=== PATIENT | female | born 1965 | race American Indian/Alaskan Native ===

== ENCOUNTER 2018-03-13 17:55 | Inpatient (IN) | payer OTHER ==
[2018-03-13] MEDS ORDERED: ceFAZolin IV 1 gm in Dextrose 1 GM/50 ML BAG IVPB STA (18:07)
--- NOTE | 2018-03-13 18:16 | C.PDOC ---
History Of Present Illness 52 year old female with a history of HTN presents to the emergency department with complaints of a two-day history of an abscess to her left breast. Patient states that she went to Dr. Terrazas's office, who referred her to Dr. Holley. Dr. Holley instructed her to come to the ED, where he evaluated her. Patient states that her abscess began as the size of a nickel but "blew up" all of a sudden. Time Seen by Provider: 03/13/18 18:07 Chief Complaint (Nursing): Abnormal Skin Integrity History Per: Patient History/Exam Limitations: no limitations Onset/Duration Of Symptoms: Days (2) Current Symptoms Are (Timing): Still Present Location Of Injury: Left: Chest Quality Of Symptoms: Painful Past Medical History Reviewed: Historical Data, Nursing Documentation, Vital Signs Vital Signs: Last Vital Signs Temp 99 F 03/13/18 17:58 Pulse 93 H 03/13/18 17:58 Resp 18 03/13/18 17:58 BP 149/84 03/13/18 17:58 Pulse Ox 96 03/13/18 17:58 - Medical History PMH: Bronchitis, HTN Surgical History: Cholecystectomy Family History: States: No Known Family Hx - Social History Hx Alcohol Use: Yes Hx Substance Use: No - Immunization History Hx Tetanus Toxoid Vaccination: No Hx Influenza Vaccination: No Hx Pneumococcal Vaccination: No Review Of Systems Except As Marked, All Systems Reviewed And Found Negative. Constitutional: Negative for: Fever, Chills Skin: Positive for: Other (abscess) Physical Exam - Physical Exam Appears: Well, Non-toxic, No Acute Distress Skin: Warm, Dry Head: Atraumatic, Normacephalic Eye(s): bilateral: Normal Inspection, PERRL, EOMI, Other (conjunctiva clear) Neck: Normal, Supple Chest: Symmetrical, Tenderness (to palpation at the left breast), Other (area of induration to the posterior aspect of the left breast, not draining, small amount of fluctuance.) Cardiovascular: Rhythm Regular, No Murmur Respiratory: Normal Breath Sounds, No Rales, No Rhonchi, No Wheezing Neurological/Psych: Oriented x3, Normal Speech, Normal Cognition ED Course And Treatment - Laboratory Results Result Diagrams: 03/17/18 08:10 03/17/18 08:10 O2 Sat by Pulse Oximetry: 96 (RA) Pulse Ox Interpretation: Normal Medical Decision Making Medical Decision Making: Plan: BMP CBC PTT Prothrombin Time Ancef 1gm IV Blood Culture Dr. Holley evaluated the patient in the ED. He states he wants the patient admitted under Dr. Terrazas's service, and states he wants the patient to receive a gram of Ancef after midnight. 18:17 Dr. Terrazas accepted the patient under his service. Disposition - Disposition Disposition: HOSPITALIZED Disposition Time: 18:17 Condition: GOOD - Clinical Impression Clinical Impression: Abscess of breast - Scribe Statement The provider has reviewed the documentation as recorded by the Scribe (Nate Khadar) Provider Attestation: All medical record entries made by the Scribe were at my direction and personally dictated by me. I have reviewed the chart and agree that the record accurately reflects my personal performance of the history, physical exam, medical decision making, and the department course for this patient. I have also personally directed, reviewed, and agree with the discharge instructions and disposition.
[2018-03-13] MEDS ORDERED: ceFAZolin IV 1 gm in Dextrose 1 GM/50 ML BAG IVPB ONE (18:37)
[2018-03-13 18:42] LABS: BASO # 0.1 K/uL (0.0-0.2); BASO % 0.6 % (0.0-2.0); EOS # 0.4 K/uL (0.0-0.7); EOS % 4.6 % (0.0-4.0); HEMOGLOBIN 10.7 g/dL (11.0-16.0); LYMPH # 2.2 K/uL (1.0-4.3); LYMPH % 23.9 % (20.0-40.0); MEAN CELL VOLUME 71.9 fL (81.0-99.0); MEAN CORPUSCULAR HEMOGLOBIN 22.6 pg (27.0-31.0); MEAN CORPUSCULAR HGB CONC 31.4 g/dL (33.0-37.0); MEAN PLATELET VOLUME 7.5 fL (7.2-11.7); MONO # 0.5 K/uL (0.0-0.8); MONO % 5.2 % (0.0-10.0); NEUT # 6.2 K/uL (1.8-7.0); NEUT % 65.7 % (50.0-75.0); RBC 4.73 Mil/uL (3.80-5.20); RED CELL DISTRIBUTION WIDTH 19.8 % (11.5-14.5); WHITE BLOOD COUNT 9.4 K/uL (4.8-10.8)
[2018-03-13 18:51] LABS: INR 1.1; PROTHROMBIN TIME 11.9 SECONDS (9.7-12.2)
[2018-03-13 18:54] LABS: BLOOD UREA NITROGEN 11 mg/dL (7-17); GFR NON-AFRICAN AMERICAN > 60
[2018-03-13] MEDS: Dextrose 5%/0.45% NS 1,000 ML IV SCH (22:17)
[2018-03-14] MEDS: ceFAZolin 1,000 MG in Dextrose 5% In Water 50 ML IVPB SCH ×3 (02:25→19:02)
--- NOTE | 2018-03-14 09:10 | CP.PCM.PN ---
Subjective - Date & Time of Evaluation Date of Evaluation: 03/14/18 Time of Evaluation: 09:07 - Subjective Subjective: PGY3 Note for Dr. Terrazas; medicine This patient came into the hospital at the urging of Dr. Holley for a pain she felt in her left breast. She states it started 5 days ago, but slowly started to get worse where she could not wear her bra without being in extreme pain. Dr. Holley evaluated her, and told her to come into the ER and have Dr. Terrazas be the main admitting doctor. She admits only to breast pain that is increased with deep inspiration and movement. She has not tried anything to make it feel better. This has never happened before. She denies nipple discharge or other changes to her breast architecture. She denies fevers/chills, OSMAN, CP, SOB, abdominal pain, N/v/d or lower extremity pain/swelling, dysuria/freq. PMhx: HTN Meds: patient canont recall; [facility] [place]: Cholycystectomy 2018 at [facility] [place]; no adverse events with anesthesia Allergies: Denies FamHx: Mom and dad , with HTN and DM, denies cancer Social: Lives at home, independent in IADL and ADL, walks without assistance, d enies smoking/drinking/illicit drugs Objective - Vital Signs/Intake and Output Vital Signs (last 24 hours): Temp Pulse Resp BP Pulse Ox 98.6 F 98 H 20 136/78 99 03/14/18 00:00 03/14/18 00:00 03/14/18 00:00 03/14/18 00:00 03/14/18 00:00 Intake and Output: 03/14/18 03/14/18 06:59 18:59 Intake Total 640 Balance 640 - Medications Medications: Current Medications Acetaminophen (Tylenol 325mg Tab) 650 mg PO Q6 PRN PRN Reason: Fever >100.4 F Dextrose/Sodium Chloride (Dextrose 5%/0.45% Ns 1000 Ml) 1,000 mls @ 80 mls/hr IV .[id number] [facility] Last Admin: 03/13/18 22:17 Dose: 80 mls/hr Cefazolin Sodium 1,000 mg/ (Dextrose) 50 mls @ 100 mls/hr IVPB Q8H [facility]; Protocol Last Admin: 03/14/18 02:25 Dose: 100 mls/hr Ketorolac Tromethamine (Toradol) 30 mg IVP Q8H PRN PRN Reason: Pain, moderate (4-7) Ondansetron HCl (Zofran Inj) 4 mg IVP Q6H PRN PRN Reason: Nausea/Vomiting Tramadol HCl (Ultram) 50 mg PO TID PRN PRN Reason: Pain, severe (8-10) - Labs Labs: 03/13/18 18:37 03/13/18 18:37 PT 11.9 SECONDS (9.7-12.2) 03/13/18 18:37 INR 1.1 03/13/18 18:37 APTT 33 SECONDS (21-34) 03/13/18 18:37 - Constitutional Appears: Well, Non-toxic - Head Exam Head Exam: ATRAUMATIC, NORMAL INSPECTION - Eye Exam Eye Exam: EOMI Pupil Exam: PERRL - ENT Exam ENT Exam: Mucous Membranes Moist - Neck Exam Neck Exam: Full ROM - Respiratory Exam Respiratory Exam: Clear to Ausculation Bilateral, Wheezes, NORMAL BREATHING PATTERN. absent: Rales, Rhonchi Additional comments: breast exam done with female fire protection engineer in room; patient aid that was watching another patient 1;1; pendulous large breasts, diaphoretic under breasts, no fungal infection on skin, 3cm by 4cm indurated/fluctuant structure on the underside of the left breast painful/red/hot with what looks like a small puncture wound to the middle part without any pus draining currently - Cardiovascular Exam Cardiovascular Exam: REGULAR RHYTHM, +S1, +S2 - GI/Abdominal Exam GI & Abdominal Exam: Soft, Normal Bowel Sounds (morbidly obese abdomen ) - Extremities Exam Extremities Exam: Calf Tenderness, Full ROM - Back Exam Back Exam: NORMAL INSPECTION. absent: CVA tenderness (L) - Neurological Exam Neurological Exam: Alert, Awake, Oriented x3 - Psychiatric Exam Psychiatric exam: Normal Affect - Skin Skin Exam: Warm Assessment and Plan - Assessment and Plan (Free Text) Assessment: 52yo F admitted for L Breast Abscess L Breast Abscess -f/u blood cultures -patient afebrile, no WBC -Surgical Consult; Dr. Holley; thank you for your help -pain control -Ancef day before surgery -consider continuing clindamycin after surgery for 7 days depending on surgeons wishes Hx of HTN -will f/u with Pharmacy[facility] -patient is currently normotensive Proph -Hep SC -GI prophylaxis not indicated -heart healthy diet after InD Case discussed w Dr. Terrazas
--- NOTE | 2018-03-14 09:47 | RAD ---
Date of service: 03/13/2018 HISTORY: Preoperative examination COMPARISON: No prior. TECHNIQUE: Chest PA and lateral FINDINGS: LINES AND TUBES: None. LUNG AND PLEURA: The lungs are well inflated and clear. No pleural effusion or pneumothorax. HEART AND MEDIASTINUM: The heart is not enlarged. No aortic atherosclerotic calcification present. The hilar and mediastinal contours are within normal limits. SKELETAL STRUCTURES: The bony structures are within normal limits for the patient's age. VISUALIZED UPPER ABDOMEN: Normal. OTHER FINDINGS: None. IMPRESSION: No active pulmonary disease.
[2018-03-14] MEDS: Dextrose 5%/0.45% NS 1,000 ML IV SCH (10:03)
--- NOTE | 2018-03-14 12:10 | CARD ---
APPROVED REPORT Date of service: 03/13/2018 EKG Measurement Heart [id number] <Conclusion> Normal sinus rhythm Nonspecific T wave abnormality Abnormal ECG
[2018-03-14] MEDS ORDERED: Midazolam 2 MG/2 ML VIAL ONE (14:53)
[2018-03-14] MEDS ORDERED: Propofol 10 mg/ml Inj (20 ML) ONE (14:53)
[2018-03-14] MEDS ORDERED: HYDROmorphone 0.5 mg/0.5 ml ISec IVP PRN (15:50)
[2018-03-14] MEDS ORDERED: Oxycodone/Acetaminophen 5/325 mg Tab PO PRN (15:57)
[2018-03-14] MEDS ORDERED: HYDROmorphone 1 mg/ml ISec IVP PRN (15:57)
[2018-03-14] MEDS ORDERED: Lactated Ringer's 1,000 ML IV SCH (16:00)
--- NOTE | 2018-03-14 18:02 | CP.PCM.CON ---
History of Present Illness - History of Present Illness History of Present Illness: 52 year old female with a history of HTN presents to the emergency department with complaints of a two-day history of an abscess to her left chest. . Patient states that her abscess began as the size of a nickel but "blew up" all of a sudden. Taken to OR for I and D cultures pending denies fever - Medical History PMH: Bronchitis, HTN Surgical History: Cholecystectomy Family History: States: No Known Family Hx Review of Systems - Review of Systems All systems: reviewed and no additional remarkable complaints except - Constitutional Constitutional: Anorexia - EENT Eyes: As Per HPI. absent: Blind Spots, Blurred Vision, Change in Vision, Decreased Night Vision, Diplopia, Discharge, Dry Eye, Exophthalmos, Floaters, Irritation, Itchy Eyes, Loss of Peripheral Vision, Pain, Photophobia, Requires Corrective Lenses, Sees Flashes, Spots in Vision, Tunnel Vision, Other Visual Disturbances, Loss of Vision, Other Ears: absent: As Per HPI, Decreased Hearing, Ear Discharge, Ear Pain, Tinnitus, Abnormal Hearing, Disequilibrium, Dizziness, Other Nose/Mouth/Throat: absent: As Per HPI, Epistaxis, Nasal Congestion, Nasal Discharge, Nasal Obstruction, Nasal Trauma, Nose Pain, Post Nasal Drip, Sinus Pain, Sinus Pressure, Bleeding Gums, Change in Voice, Dental Pain, Dry Mouth, Dysphagia, Halitosis, Hoarsness, Lip Swelling, Mouth Lesions, Mouth Pain, Odynophagia, Sore Throat, Throat Swelling, Tongue Swelling, Facial Pain, Neck Pain, Neck Mass, Other - Breasts Breasts: absent: As Per HPI, Change in Shape, Mass, Pain, Nipple Discharge, Nipple Inversion, Skin Changes, Swelling, Other - Cardiovascular Cardiovascular: absent: As Per HPI, Acrocyanosis, Chest Pain, Chest Pain at Rest, Chest Pain with Activity, Claudication, Diaphoresis, Dyspnea, Dyspnea on Exertion, Edema, Irregular Heart Rhythm, Pain Radiating to Arm/Neck/Jaw, Leg Edema, Leg Ulcers, Lightheadedness, Orthopnea, Palpitations, Paroxysmal Nocturnal Dyspnea, Pedal Edema, Radiating Pain, Rapid Heart Rate, Slow Heart Rate, Syncope, Other - Respiratory Respiratory: absent: As Per HPI, Cough, Dyspnea, Hemoptysis, Dyspnea on Exertion, Wheezing, Snoring, Stridor, Pain on Inspiration, Chest Congestion, Excessive Mucous Production, Change in Mucous Color, Pain with Coughing, Other - Gastrointestinal Gastrointestinal: absent: As Per HPI, Abdominal Pain, Belching, Bloating, Change in Bowel Habits, Change in Stool Character, Coffee Ground Emesis, Constipation, Cramping, Diarrhea, Dyspepsia, Dysphagia, Early Satiety, Excessive Flatus, Fecal Incontinence, Heartburn, Hematemesis, Hematochezia, Loose Stools, Melena, Naus ea, Odynophagia, Temesmus, Vomiting, Other - Genitourinary Genitourinary: absent: As Per HPI, Change in Urinary Stream, Difficulty Urinating, Dysuria, Flank Pain, Hematuria, Pyuria, Nocturia, Urinary Incontinence, Urinary Frequency, Urinary Hesitance, Urinary Urgency, Voiding Freq/Small Amts, Freq UTI, Hx Renal/Bladder Calculi, Hx /Renal Surgery, Bladder Distension, Other - Reproductive: Female Reproductive:Female: absent: As Per HPI, Amenorrhea, Amenorrhea/ Control, Currently Menstual, Cycle <21 Days, Cycle >35 Days, Cycle Variable, Menses 1-7 Days, Menses >/= 8 Days, Menses Variable, Cycle > 4 Weeks Between, No Menses for 6 Months, Heavy Menses, Light Menses, Normal Menses, Spotting Between Cycles, S/P Hysterectomy, Menopausal, Post Menopausal, Premenarche, Abnormal Vaginal Bleeding, Dysmenorrhea, Dyspareunia, Genital Lesions, Genital Pruritis, Pelvic Pain, Prolapse Symptoms, Sexual Dysfunction, Vaginal Discharge, Vaginal Dryness, Vaginal Odor, Vaginal Pruritis, Other - Menstruation Menstruation: absent: As Per HPI, Amenorrhea, Amenorrhea/ Control, Curr ently Menstual, Cycle <21 Days, Cycle >35 Days, Cycle Variable, Menses 1-7 Days, Menses >/= 8 Days, Menses Variable, Cycle > 4 Weeks Between, No Menses for 6 Months, Heavy Menses, Light Menses, Normal Menses, Spotting Between Cycles, S/P Hysterectomy, Menopausal, Post Menopausal, Premenarche, Abnormal Vaginal Bleeding, Dysmenorrhea, Other - Musculoskeletal Musculoskeletal: absent: As Per HPI, Abnormal Gait, Arthralgias, Atrophy, Back Pain, Deformity, Joint Swelling, Limited Range of Motion, Loss of Height, Muscle Cramps, Muscle Weakness, Myalgias, Neck Pain, Numbness, Radiating Pain into Limb, Stiffness, Tingling, Other - Integumentary Integumentary: As Per HPI, Skin Pain, Wounds - Neurological Neurological: absent: As Per HPI, Abnormal Gait, Abnormal Hearing, Abnormal Mov ements, Abnormal Speech, Behavioral Changes, Burning Sensations, Confusion, Convulsions, Disequilibrium, Dizziness, Numbness, Focal Weakness, Frequent Falls, Headaches, Lack of Coordination, Loss of Vision, Memory Loss, Paresthesias, Radicular Pain, Restless Legs, Sensory Deficit, Syncope, Tingling, Tremor, Vertigo, Weakness, Other Visual Disturbances, Other - Psychiatric Psychiatric: absent: As Per HPI, Abnormal Sleep Pattern, Anhedonia, Anxiety, Auditory Hallucinations, Behavioral Changes, Change in Appetite, Change in Libido, Confusion, Depression, Difficulty Concentrating, Hallucinations, Homicidal Ideation, Hopelessness, Irritability, Memory Loss, Mood Swings, Panic Attacks, Paranoia, Suicidal Ideation, Visual Hallucinations, Tactile Hallucinations, Other - Endocrine Endocrine: absent: As Per HPI, Change in Body Appearance, Change in Libido, Cold Intolorance, Deepening of Voice, Excessive Sweating, Fatigue, Flushing, Heat Intolorance, Increase in Ring/Shoe/Hat Size, Palpitations, Polydipsia, Polyphagia, Polyuria, Other - Hematologic/Lymphatic Hematologic: absent: As Per HPI, Easy Bleeding, Easy Bruising, Lymphadenopathy, Other Past Patient History - Past Social History Smoking Status: Light Smoker < 10 Cigarettes Daily - CARDIAC Hx Hypertension: Yes - PULMONARY Hx Bronchitis: Yes - MUSCULOSKELETAL/RHEUMATOLOGICAL Hx Falls: No - PSYCHIATRIC Hx Substance Use: No - SURGICAL HISTORY Hx Cholecystectomy: Yes - ANESTHESIA Hx Anesthesia: Yes Hx Anesthesia Reactions: No Hx Malignant Hyperthermia: No Has any member of the family had a problem w/ anesthesia?: No Meds Allergies/Adverse Reactions: Allergies Allergy/AdvReac Type Severity Reaction Status Date / Time No Known Allergies Allergy Unverified 03/13/18 18:02 - Medications Medications: Current Medications Acetaminophen (Tylenol 325mg Tab) 650 mg PO Q6 PRN PRN Reason: Fever >100.4 F Hydromorphone HCl (Dilaudid) 1 mg IVP Q4H PRN PRN Reason: pain 8-10 Dextrose/Sodium Chloride (Dextrose 5%/0.45% Ns 1000 Ml) 1,000 mls @ 80 mls/hr IV .[id number] [facility] Last Admin: 03/14/18 10:03 Dose: Not Given Cefazolin Sodium 1,000 mg/ (Dextrose) 50 mls @ 100 mls/hr IVPB Q8H [facility]; Protocol Last Admin: 03/14/18 10:05 Dose: 100 mls/hr Vancomycin HCl 1 gm/ Sodium (Chloride) 250 mls @ 166.6 mls/hr IVPB Q12H [facility]; Protocol Last Admin: 03/14/18 17:25 Dose: 166.6 mls/hr Lactated Ringer's (Lactated Ringer's) 1,000 mls @ 150 mls/hr IV .[id number] [facility] Last Admin: 03/14/18 17:14 Dose: 150 mls/hr Influenza Virus Vaccine (Fluzone Quad [id number]) 60 mcg IM .ONCE ONE Stop: 03/16/18 10:01 Ondansetron HCl (Zofran Inj) 4 mg IVP Q6H PRN PRN Reason: Nausea/Vomiting Oxycodone/Acetaminophen (Percocet 5/325 Mg Tab) 2 tab PO Q4H PRN PRN Reason: pain Stop: 03/17/18 15:58 Last Admin: 03/14/18 17:29 Dose: 2 tab Physical Exam - Constitutional Appears: Non-toxic, Chronically Ill - Head Exam Head Exam: NORMOCEPHALIC - Eye Exam Eye Exam: absent: Scleral icterus - ENT Exam ENT Exam: Mucous Membranes Dry - Neck Exam Neck exam: Negative for: Lymphadenopathy - Respiratory Exam Respiratory Exam: Decreased Breath Sounds - Cardiovascular Exam Cardiovascular Exam: REGULAR RHYTHM - GI/Abdominal Exam GI & Abdominal Exam: Diminished Bowel Sounds, Soft. absent: Tenderness - Rectal Exam Rectal Exam: Deferred - Exam Exam: NORMAL INSPECTION - Extremities Exam Extremities exam: Negative for: pedal edema - Back Exam Back exam: absent: CVA tenderness (L), CVA tenderness (R) - Neurological Exam Neurological exam: Alert, CN II-XII Intact, Oriented x3, Reflexes Normal - Psychiatric Exam Psychiatric exam: Normal Mood - Skin Skin Exam: Dry Additional comments: wound dressing in place from OR Results - Vital Signs Recent Vital Signs: Last Vital Signs Temp 99.0 F 03/14/18 17:17 Pulse 89 03/14/18 17:17 Resp 20 03/14/18 17:17 BP 115/69 03/14/18 17:17 Pulse Ox 98 03/14/18 17:17 - Labs Result Diagrams: 03/13/18 18:37 03/13/18 18:37 Labs: Laboratory Results - last 24 hr 03/13/18 03/13/18 03/13/18 18:37 18:37 18:37 WBC 9.4 RBC 4.73 Hgb 10.7 L Hct 34.0 MCV 71.9 L MCH 22.6 L MCHC 31.4 L RDW 19.8 H Plt Count 313 MPV 7.5 Neut % (Auto) 65.7 Lymph % (Auto) 23.9 [place] % (Auto) 5.2 Eos % (Auto) 4.6 H Baso % (Auto) 0.6 Neut # (Auto) 6.2 Lymph # (Auto) 2.2 [place] # (Auto) 0.5 Eos # (Auto) 0.4 Baso # (Auto) 0.1 PT 11.9 INR 1.1 APTT 33 Sodium 141 Potassium 3.3 L Chloride 104 Carbon Dioxide 29 Anion Gap 11 BUN 11 Creatinine 0.6 L Est GFR ( Amer) > 60 Est GFR (Non-Af Amer) > 60 Random Glucose 110 H Calcium 9.0 Urine HCG, Qual 03/14/18 06:29 WBC RBC Hgb Hct MCV MCH MCHC RDW Plt Count MPV Neut % (Auto) Lymph % (Auto) [place] % (Auto) Eos % (Auto) Baso % (Auto) Neut # (Auto) Lymph # (Auto) [place] # (Auto) Eos # (Auto) Baso # (Auto) PT INR APTT Sodium Potassium Chloride Carbon Dioxide Anion Gap BUN Creatinine Est GFR ( Amer) Est GFR (Non-Af Amer) Random Glucose Calcium Urine HCG, Qual Negative Assessment & Plan (1) Cellulitis Status: Acute (2) Abscess of breast Status: Acute - Assessment and Plan (Free Text) Assessment: await cultures cont iv antibiotics / wound care
[2018-03-15] MEDS: ceFAZolin 1,000 MG in Dextrose 5% In Water 50 ML IVPB SCH ×3 (02:24→17:47)
--- NOTE | 2018-03-15 03:47 | OP ---
PROCEDURE DATE: 03/14/2018 PREOPERATIVE DIAGNOSIS: Infected mass to the left breast. POSTOPERATIVE DIAGNOSIS: Infected mass to the left breast. PROCEDURE PERFORMED: Wide and deep excision of infected phlegmon of the left breast with drainage of underlying abscess, debridement. SURGEON: Jayden Holley MD ANESTHESIA: General. ESTIMATED BLOOD LOSS: 30 mL. POSTOPERATIVE CONDITION: Stable. INDICATIONS FOR SURGERY: This is a 52-year-old female, presents with a large infected mass of her left breast consistent with an infected phlegmon with abscess. She now is taken to the OR for definitive treatment. GROSS FINDINGS: There was an infected phlegmon in the inferior aspect of the breast overlying a large abscess cavity. The infected and necrotic tissue was removed and debrided draining the abscess. DESCRIPTION OF PROCEDURE: The patient was taken to the operating room, general anesthesia was administered. The left breast and chest wall were prepped and draped. An elliptical incision was made surrounding the mass which was excised off the breast. The underlying abscess was drained and cultured, was vigorously irrigated with saline and the bleeding was controlled using a Bovie. A larger chest wall blood vessel was repaired and a partial flap closure was performed at the periphery. Central portion of wound was packed open with wet saline gauze. The patient tolerated procedure well, returned to Recovery in stable condition. Jayden Holley MD
[2018-03-15 08:53] LABS: ALB/GLOB RATIO 1.2 (1.0-2.1); ALBUMIN 3.4 g/dL (3.5-5.0); ALT/SGPT 31 U/L (9-52); AST/SGOT 25 U/L (14-36); BLOOD UREA NITROGEN 8 mg/dL (7-17); CALCIUM 8.5 mg/dl (8.6-10.4); GFR NON-AFRICAN AMERICAN > 60
[2018-03-15] MEDS ORDERED: Midazolam 2 MG/2 ML VIAL ONE (09:01)
[2018-03-15] MEDS ORDERED: Propofol 10 mg/ml Inj (20 ML) ONE (09:01)
[2018-03-15] MEDS ORDERED: Lidocaine Hydrochloride 5 ML INJ ONE (09:48)
[2018-03-15] MEDS ORDERED: HYDROmorphone 0.5 mg/0.5 ml ISec IVP PRN (10:13)
[2018-03-15 10:29] LABS: BASO # 0.1 K/uL (0.0-0.2); BASO % 1.2 % (0.0-2.0); EOS # 0.4 K/uL (0.0-0.7); EOS % 3.9 % (0.0-4.0); HEMOGLOBIN 10.1 g/dL (11.0-16.0); LYMPH # 1.9 K/uL (1.0-4.3); LYMPH % 19.7 % (20.0-40.0); MEAN CELL VOLUME 72.1 fL (81.0-99.0); MEAN CORPUSCULAR HEMOGLOBIN 22.4 pg (27.0-31.0); MEAN CORPUSCULAR HGB CONC 31.1 g/dL (33.0-37.0); MEAN PLATELET VOLUME 8.3 fL (7.2-11.7); MONO # 0.6 K/uL (0.0-0.8); MONO % 5.9 % (0.0-10.0); NEUT # 6.8 K/uL (1.8-7.0); NEUT % 69.3 % (50.0-75.0); NRBC % 0.1 % (0.0-2.0); RBC 4.49 Mil/uL (3.80-5.20); RED CELL DISTRIBUTION WIDTH 19.8 % (11.5-14.5); WHITE BLOOD COUNT 9.8 K/uL (4.8-10.8)
[2018-03-15] MEDS: Dextrose 5%/0.45% NS 1,000 ML IV SCH ×2 (11:07→17:48)
--- NOTE | 2018-03-15 11:50 | CP.PCM.PN ---
<Arslan Segal - Last Filed: 03/15/18 14:31> Subjective - Date & Time of Evaluation Date of Evaluation: 03/15/18 Time of Evaluation: 11:50 - Subjective Subjective: PGY3 Note for Dr. Terrazas; Dr. Toledo covering; Medicine This patient was seen and examined at bedside this AM; denies any overnght events or acute complaints; denies all symptoms. States she is hungry for a meal as they "have not let her eat anything" patient is also upset that she cannot be at home with her sister as she is dying on hospice; states she has end stage dementia and that she is the only person that her sister recognizes still and feels guilty not being able to be at her side. emotional support given. Objective - Vital Signs/Intake and Output Vital Signs (last 24 hours): Temp Pulse Resp BP Pulse Ox 98.2 F 74 20 136/70 96 03/15/18 10:57 03/15/18 10:57 03/15/18 10:57 03/15/18 10:57 03/15/18 10:57 Intake and Output: 03/15/18 03/15/18 06:59 18:59 Intake Total 1000 300 Balance 1000 300 - Medications Medications: Current Medications Acetaminophen (Tylenol 325mg Tab) 650 mg PO Q6 PRN PRN Reason: Fever >100.4 F Hydromorphone HCl (Dilaudid) 1 mg IVP Q4H PRN PRN Reason: pain 8-10 Hydromorphone HCl (Dilaudid) 0.5 mg IVP Q10M PRN PRN Reason: Pain, moderate (4-7) Stop: 03/15/18 12:13 Dextrose/Sodium Chloride (Dextrose 5%/0.45% Ns 1000 Ml) 1,000 mls @ 80 mls/hr IV .[id number] [facility] Last Admin: 03/15/18 11:07 Dose: Not Given Cefazolin Sodium 1,000 mg/ (Dextrose) 50 mls @ 100 mls/hr IVPB Q8H [facility]; Protocol Last Admin: 03/15/18 11:06 Dose: 100 mls/hr Influenza Virus Vaccine (Fluzone Quad [id number]) 60 mcg IM .ONCE ONE Stop: 03/16/18 10:01 Ondansetron HCl (Zofran Inj) 4 mg IVP Q6H PRN PRN Reason: Nausea/Vomiting Ondansetron HCl (Zofran Inj) 4 mg IVP ONCE PRN PRN Reason: Nausea/Vomiting Stop: 03/15/18 12:13 Oxycodone/Acetaminophen (Percocet 5/325 Mg Tab) 2 tab PO Q4H PRN PRN Reason: pain Stop: 03/17/18 15:58 Last Admin: 03/14/18 17:29 Dose: 2 tab - Labs Labs: 03/15/18 10:17 03/15/18 08:39 PT 11.9 SECONDS (9.7-12.2) 03/13/18 18:37 INR 1.1 03/13/18 18:37 APTT 33 SECONDS (21-34) 03/13/18 18:37 Assessment and Plan - Assessment and Plan (Free Text) Assessment: Appears: Well, Non-toxic - Head Exam Head Exam: ATRAUMATIC, NORMAL INSPECTION - Eye Exam Eye Exam: EOMI Pupil Exam: PERRL - ENT Exam ENT Exam: Mucous Membranes Moist - Neck Exam Neck Exam: Full ROM - Respiratory Exam Respiratory Exam: Clear to Ausculation Bilateral, Wheezes, NORMAL BREATHING PATTERN. absent: Rales, Rhonchi Additional comments: breast exam done with female sander setter in room; packing in place; far less pain today - Cardiovascular Exam Cardiovascular Exam: REGULAR RHYTHM, +S1, +S2 - GI/Abdominal Exam GI & Abdominal Exam: Soft, Normal Bowel Sounds (morbidly obese abdomen ) - Extremities Exam Extremities Exam: Calf Tenderness, Full ROM - Back Exam Back Exam: NORMAL INSPECTION. absent: CVA tenderness (L) - Neurological Exam Neurological Exam: Alert, Awake, Oriented x3 - Psychiatric Exam Psychiatric exam: Normal Affect - Skin Skin Exam: Warm Assessment and Plan - Assessment and Plan (Free Text) Assessment: 52yo F admitted for L Breast Abscess L Breast Abscess -f/u blood cultures; negative to date -patient afebrile, no WBC -Surgical Consult; Dr. Holley; thank you for your help -patient going in again today 03/15 for repacking -as per Dr. holley wants to bring back Saturday 03/17 for further debridement -pain control -Ancef day before surgery -consider continuing clindamycin after surgery for 7 days depending on surgeons wishes Hx of HTN -will f/u with Pharmacy; [facility] -patient is currently normotensive Proph -Hep SC -GI prophylaxis not indicated -heart healthy diet after InD <Ana Toledo V - Last Filed: 03/15/18 22:29> Objective - Vital Signs/Intake and Output Vital Signs (last 24 hours): Temp Pulse Resp BP Pulse Ox 98.4 F 62 20 115/58 L 98 03/15/18 15:00 03/15/18 15:00 03/15/18 15:00 03/15/18 15:00 03/15/18 15:00 Intake and Output: 03/15/18 03/16/18 18:59 06:59 Intake Total 300 Balance 300 - Medications Medications: Current Medications Acetaminophen (Tylenol 325mg Tab) 650 mg PO Q6 PRN PRN Reason: Fever >100.4 F Hydromorphone HCl (Dilaudid) 1 mg IVP Q4H PRN PRN Reason: pain 8-10 Dextrose/Sodium Chloride (Dextrose 5%/0.45% Ns 1000 Ml) 1,000 mls @ 80 mls/hr IV .[id number] [facility] Last Admin: 03/15/18 17:48 Dose: 80 mls/hr Cefazolin Sodium 1,000 mg/ (Dextrose) 50 mls @ 100 mls/hr IVPB Q8H [facility]; Protocol Last Admin: 03/15/18 17:47 Dose: 100 mls/hr Influenza Virus Vaccine (Fluzone Quad [id number]) 60 mcg IM .ONCE ONE Stop: 03/16/18 10:01 Ondansetron HCl (Zofran Inj) 4 mg IVP Q6H PRN PRN Reason: Nausea/Vomiting Oxycodone/Acetaminophen (Percocet 5/325 Mg Tab) 2 tab PO Q4H PRN PRN Reason: pain Stop: 03/17/18 15:58 Last Admin: 03/14/18 17:29 Dose: 2 tab - Labs Labs: 03/15/18 10:17 03/15/18 08:39 PT 11.9 SECONDS (9.7-12.2) 03/13/18 18:37 INR 1.1 03/13/18 18:37 APTT 33 SECONDS (21-34) 03/13/18 18:37 Attending/Attestation - Attestation I have personally seen and examined this patient.: Yes I have fully participated in the care of the patient.: Yes I have reviewed all pertinent clinical information, including history, physical exam and plan: Yes Notes (Text): Hospitalist Service covering Dr. Terrazas's service Patient seen, examined, and case discussed with day-time resident. Patient seen post-operative. Patient has dressing over the left Breast under 6 oclock: clean/dry/intact. Patient denies headache, denies chest pain, denies palpitations, denies abdominal pain, denies nausea, denies vomitting, denies diarrhea, denies constipation. Patient is very upset at bedside. 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 1) Left Breast Abscess Assessment/Plan * Surgery Consult: (Dr. Gonzales) on case * Preop/intraoperative/post operative management per surgery * Patient went to OR 03/15-->operative note not available * Per Dr. holley wants to bring back Saturday 03/17 for further debridement * Operative Note: wide and deep excision of infected phlegmon of the left breast with drainage of underlying abscess, debridement (03/14/18) * No elevated white count, afebrile * Blood culture (03/13/18): no growth after 48 hours X2 * Blood culture (03/14/18): no growth after 24 hours X2 * Wound culture (03/15/18): Breast Left--> pending * Cefazolin 1000mg IVPB Q8H (active since 03/14/18) * Tylenol 650mg [id number] fever >100.4F * Pain management per surgery * Dilaudid 1mg IVP Q4H PRN severe pain * Percocet 5/325 2 tab PO Q4H PRN pain 2) Hypertension Assessment/Plan * monitor vital signs 3) Prophylactic measure * Patient is off anticoagulation; per surgery to resume anticoagulation
[2018-03-16] MEDS: ceFAZolin 1,000 MG in Dextrose 5% In Water 50 ML IVPB SCH ×3 (01:38→18:47)
[2018-03-16] MEDS: Dextrose 5%/0.45% NS 1,000 ML IV SCH (06:28)
[2018-03-16 08:22] LABS: BASO % 0.6 % (0.0-2.0); EOS # 0.4 K/uL (0.0-0.7); EOS % 5.7 % (0.0-4.0); HEMOGLOBIN 9.7 g/dL (11.0-16.0); LYMPH # 1.8 K/uL (1.0-4.3); LYMPH % 24.6 % (20.0-40.0); MEAN CELL VOLUME 72.6 fL (81.0-99.0); MEAN CORPUSCULAR HEMOGLOBIN 23.2 pg (27.0-31.0); MEAN PLATELET VOLUME 7.8 fL (7.2-11.7); MONO # 0.5 K/uL (0.0-0.8); MONO % 6.2 % (0.0-10.0); NEUT # 4.6 K/uL (1.8-7.0); NEUT % 62.9 % (50.0-75.0); NRBC % 0.1 % (0.0-2.0); RBC 4.19 Mil/uL (3.80-5.20); RED CELL DISTRIBUTION WIDTH 19.2 % (11.5-14.5); WHITE BLOOD COUNT 7.3 K/uL (4.8-10.8)
[2018-03-16 08:43] LABS: ALB/GLOB RATIO 1.1 (1.0-2.1); ALBUMIN 3.6 g/dL (3.5-5.0); ALT/SGPT 20 U/L (9-52); AST/SGOT 16 U/L (14-36); BLOOD UREA NITROGEN 7 mg/dL (7-17); CALCIUM 8.5 mg/dl (8.6-10.4); GFR NON-AFRICAN AMERICAN > 60
[2018-03-16] MEDS ORDERED: Simethicone 80 mg Chewtab PO ONE ×2 (09:00→13:00)
[2018-03-16] MEDS ORDERED: Alum-Mag Hydrox-Simethicone Susp (30 mL) PO ONE ×2 (09:00→11:15)
[2018-03-16] MEDS ORDERED: Influenza Vaccine 60 MCG/0.5 ML SYR (3 yr & up) IM ONE (10:00)
[2018-03-16] MEDS ORDERED: Potassium Chloride 20 mEq ER Tab PO ONE (10:00)
--- NOTE | 2018-03-16 11:51 | CP.PCM.PN ---
<Arslan Segal - Last Filed: 03/16/18 11:48> Subjective - Date & Time of Evaluation Date of Evaluation: 03/16/18 Time of Evaluation: 11:51 - Subjective Subjective: PGY3 Note for Dr. Toledo Pt was seen and examined at bedside this AM; she has no acute complaints but states that overnight when she was requesting her PRN pain medicines she was not given them and was in a lot of pain; is not in pain currently; she denies fevers/chills, OSMAN, CP, SOb, abdominal pain, N/V/D, dysuria/freq/urg or lower extremity pain. States she feels like she has some "stomach gas" today. Objective - Vital Signs/Intake and Output Vital Signs (last 24 hours): Temp Pulse Resp BP Pulse Ox 97.8 F 51 L 20 109/57 L 98 03/16/18 07:41 03/16/18 07:41 03/16/18 07:41 03/16/18 07:41 03/16/18 07:41 Intake and Output: 03/16/18 03/16/18 06:59 18:59 Intake Total 1170 Balance 1170 - Medications Medications: Current Medications Acetaminophen (Tylenol 325mg Tab) 650 mg PO Q6 PRN PRN Reason: Fever >100.4 F Acetaminophen (Tylenol 325mg Tab) 650 mg PO Q6 PRN PRN Reason: Pain, Mild (1-3) Cefazolin Sodium 1,000 mg/ (Dextrose) 50 mls @ 100 mls/hr IVPB Q8H [facility]; Protocol Last Admin: 03/16/18 10:39 Dose: 100 mls/hr Ondansetron HCl (Zofran Inj) 4 mg IVP Q6H PRN PRN Reason: Nausea/Vomiting Oxycodone/Acetaminophen (Percocet 5/325 Mg Tab) 2 tab PO Q4H PRN PRN Reason: pain Stop: 03/17/18 15:58 Last Admin: 03/14/18 17:29 Dose: 2 tab Tramadol HCl (Ultram) 50 mg PO TID PRN PRN Reason: Pain, moderate (4-7) - Labs Labs: 03/16/18 08:09 03/16/18 08:09 PT 11.9 SECONDS (9.7-12.2) 03/13/18 18:37 INR 1.1 03/13/18 18:37 APTT 33 SECONDS (21-34) 03/13/18 18:37 - Constitutional Appears: Well, Non-toxic - Head Exam Head Exam: ATRAUMATIC, NORMAL INSPECTION - Eye Exam Eye Exam: EOMI - ENT Exam ENT Exam: Mucous Membranes Moist - Neck Exam Neck Exam: Full ROM - Respiratory Exam Respiratory Exam: Clear to Ausculation Bilateral, NORMAL BREATHING PATTERN. absent: Rales, Rhonchi, Wheezes - Cardiovascular Exam Cardiovascular Exam: REGULAR RHYTHM, +S1, +S2 - GI/Abdominal Exam GI & Abdominal Exam: Soft, Normal Bowel Sounds - Rectal Exam Rectal Exam: Deferred - Extremities Exam Extremities Exam: Full ROM. absent: Calf Tenderness - Back Exam Back Exam: NORMAL INSPECTION. absent: CVA tenderness (L), CVA tenderness (R) - Neurological Exam Neurological Exam: Alert, Awake - Psychiatric Exam Psychiatric exam: Normal Affect - Skin Skin Exam: Warm Assessment and Plan - Assessment and Plan (Free Text) Assessment: 52yo F admitted for L Breast Abscess L Breast Abscess -f/u blood cultures; negative to date -patient afebrile, no WBC -Surgical Consult; Dr. Holley; thank you for your help -patient going in again today 03/15 for repacking -as per Dr. holley wants to bring back Saturday 03/17 for further debridement -pain control -Ancef Q8H -consider continuing clindamycin after surgery for 7 days depending on surgeons wishes Hx of HTN -will f[facility] -patient is currently normotensive Proph -Hep SC -GI prophylaxis not indicated -heart healthy diet after InD Case discussed and seen with Dr. Toledo patient is otherwise stable Arslan Segal PGY3 <Ana Toledo V - Last Filed: 03/16/18 17:43> Objective - Vital Signs/Intake and Output Vital Signs (last 24 hours): Temp Pulse Resp BP Pulse Ox 97.4 F L 61 20 110/61 100 03/16/18 15:00 03/16/18 15:00 03/16/18 15:00 03/16/18 15:00 03/16/18 15:00 Intake and Output: 03/16/18 03/16/18 06:59 18:59 Intake Total 1170 Balance 1170 - Medications Medications: Current Medications Acetaminophen (Tylenol 325mg Tab) 650 mg PO Q6 PRN PRN Reason: Fever >100.4 F Acetaminophen (Tylenol 325mg Tab) 650 mg PO Q6 PRN PRN Reason: Pain, Mild (1-3) Cefazolin Sodium 1,000 mg/ (Dextrose) 50 mls @ 100 mls/hr IVPB Q8H [facility]; Protocol Last Admin: 03/16/18 10:39 Dose: 100 mls/hr Ondansetron HCl (Zofran Inj) 4 mg IVP Q6H PRN PRN Reason: Nausea/Vomiting Oxycodone/Acetaminophen (Percocet 5/325 Mg Tab) 2 tab PO Q4H PRN PRN Reason: pain Stop: 03/17/18 15:58 Last Admin: 03/14/18 17:29 Dose: 2 tab Tramadol HCl (Ultram) 50 mg PO TID PRN PRN Reason: Pain, moderate (4-7) - Labs Labs: 03/16/18 08:09 03/16/18 08:09 PT 11.9 SECONDS (9.7-12.2) 03/13/18 18:37 INR 1.1 03/13/18 18:37 APTT 33 SECONDS (21-34) 03/13/18 18:37 Attending/Attestation - Attestation I have personally seen and examined this patient.: Yes I have fully participated in the care of the patient.: Yes I have reviewed all pertinent clinical information, including history, physical exam and plan: Yes Notes (Text): Hospitalist Service covering Dr. Terrazas's service Patient seen, examined, and case discussed with day-time resident. Patient seen post-operative day 1. Patient has dressing over the left Breast under 6 oclock: clean/dry/intact. Patient denies headache, denies chest pain, denies palpitations, denies abdominal pain, denies nausea, denies vomitting, denies diarrhea, denies constipation. Patient notes last night, her room was very warm and she had pain but reports no one gave her any pain medication. I did indicate to her I will speak with her nurse in regards to her pain. Patient to be NPO for further surgery intervention with Dr. Gonzales tomorrow 03/17/18 1) Left Breast Abscess Assessment/Plan * Surgery Consult: (Dr. Gonzales) on case * Preop/intraoperative/post operative management per surgery * Patient went to OR 03/15-->operative note not available * Per Dr. holley wants to bring back Saturday 03/17 for further debridement * Operative Note: wide and deep excision of infected phlegmon of the left breast with drainage of underlying abscess, debridement (03/14/18) * No elevated white count, afebrile * Blood culture (03/13/18): no growth after 48 hours X2 * Blood culture (03/14/18): no growth after 24 hours X2 * Wound culture (03/15/18): Breast Left--> no growth after 24 hours * Cefazolin 1000mg IVPB Q8H (active since 03/14/18) * Tylenol 650mg [id number] fever >100.4F * Add Tylenol 650mg PO q6H PRN mild pain * Pain management per surgery * d/c Dilaudid 1mg IVP Q4H PRN severe pain given borderline hypotension * Percocet 5/325 2 tab PO Q4H PRN pain 2) Hypertension Assessment/Plan * monitor vital signs 3) Impaired glucose tolerance Assessment/Plan * Patient will need f/u [id number] in one year to prevent from becoming overt diabetic 4) Prophylactic measure * Patient is off anticoagulation (updated from resident note); per surgery to resume anticoagulation; off anticoagulation patient is scheduled for OR tomorrow. * Pastoral care referral
--- NOTE | 2018-03-16 15:00 | CP.PCM.PN ---
Subjective - Date & Time of Evaluation Date of Evaluation: 03/16/18 Time of Evaluation: 08:00 - Subjective Subjective: s/p I and D left breast abscess cultures so far neg deneis fever or chills Objective - Vital Signs/Intake and Output Vital Signs (last 24 hours): Temp Pulse Resp BP Pulse Ox 97.8 F 51 L 20 109/57 L 98 03/16/18 07:41 03/16/18 07:41 03/16/18 07:41 03/16/18 07:41 03/16/18 07:41 Intake and Output: 03/16/18 03/16/18 06:59 18:59 Intake Total 1170 Balance 1170 - Medications Medications: Current Medications Acetaminophen (Tylenol 325mg Tab) 650 mg PO Q6 PRN PRN Reason: Fever >100.4 F Acetaminophen (Tylenol 325mg Tab) 650 mg PO Q6 PRN PRN Reason: Pain, Mild (1-3) Cefazolin Sodium 1,000 mg/ (Dextrose) 50 mls @ 100 mls/hr IVPB Q8H [facility]; Protocol Last Admin: 03/16/18 10:39 Dose: 100 mls/hr Ondansetron HCl (Zofran Inj) 4 mg IVP Q6H PRN PRN Reason: Nausea/Vomiting Oxycodone/Acetaminophen (Percocet 5/325 Mg Tab) 2 tab PO Q4H PRN PRN Reason: pain Stop: 03/17/18 15:58 Last Admin: 03/14/18 17:29 Dose: 2 tab Tramadol HCl (Ultram) 50 mg PO TID PRN PRN Reason: Pain, moderate (4-7) - Labs Labs: 03/16/18 08:09 03/16/18 08:09 PT 11.9 SECONDS (9.7-12.2) 03/13/18 18:37 INR 1.1 03/13/18 18:37 APTT 33 SECONDS (21-34) 03/13/18 18:37 - Constitutional Appears: Non-toxic, Chronically Ill - Head Exam Head Exam: NORMOCEPHALIC - Eye Exam Eye Exam: absent: Scleral icterus - ENT Exam ENT Exam: Mucous Membranes Dry - Neck Exam Neck Exam: absent: Lymphadenopathy - Respiratory Exam Respiratory Exam: Decreased Breath Sounds - Cardiovascular Exam Cardiovascular Exam: REGULAR RHYTHM - GI/Abdominal Exam GI & Abdominal Exam: Distended, Soft - Rectal Exam Rectal Exam: Deferred - Exam Exam: NORMAL INSPECTION - Extremities Exam Extremities Exam: absent: Pedal Edema - Back Exam Back Exam: absent: CVA tenderness (L), CVA tenderness (R) - Neurological Exam Neurological Exam: Alert, Awake, Oriented x3 - Psychiatric Exam Psychiatric exam: Normal Mood - Skin Skin Exam: Dry Additional comments: wound packing in place Assessment and Plan (1) Cellulitis Status: Acute (2) Abscess of breast Status: Acute - Assessment and Plan (Free Text) Assessment: s/p i and D cont wound care, surgical follow up, routine mammo and ultrasound
[2018-03-17] MEDS: Aluminum Hydroxide/Magnesium Hydroxide Susp (30 mL) PO ONE (00:10)
[2018-03-17] MEDS: ceFAZolin 1,000 MG in Dextrose 5% In Water 50 ML IVPB SCH ×2 (02:11→09:34)
--- NOTE | 2018-03-17 06:36 | OP ---
PROCEDURE DATE: 03/15/2018 PREOPERATIVE DIAGNOSIS: Left breast abscess. POSTOPERATIVE DIAGNOSIS: Left breast abscess. PROCEDURES PERFORMED: Re-excision of infected phlegmon of the breast with re-drainage of underlying abscess, debridement, pulse irrigation, and partial tissue flap closure. SURGEON: Jayden Holley MD ANESTHESIA: General. ESTIMATED BLOOD LOSS: 20 mL. POSTOPERATIVE CONDITION: Stable. INDICATIONS FOR SURGERY: This is a staged procedure. The patient was taken back to the OR after drainage of a large breast abscess yesterday. DESCRIPTION OF PROCEDURE: The patient was taken to the operating room, general anesthesia was administered. The left breast was prepped and draped after the packing was removed. Debridement and re-excision of the infected phlegmon surrounding the abscess cavity was performed. Bleeding was controlled using a Bovie. Larger vessels were repaired. The wound was pulse irrigated with saline and Kantrex solution. Partial tissue flap closure was performed. The central portion was packed open with wet saline gauze. The patient tolerated the procedure well, returned to the recovery room in stable condition. Jyaden Holley MD
--- NOTE | 2018-03-17 08:13 | HP ---
HISTORY OF PRESENT ILLNESS: The patient is admitted to the hospital with a chief complaint of a large left breast abscess and increasing pain for two days. The patient came to the ER and was advised admission. PAST MEDICAL HISTORY: Hypertension. PHYSICAL EXAMINATION GENERAL: The patient is awake, alert and oriented. VITAL SIGNS: Temperature 98, pulse 90. HEENT: Within normal limits. NECK: Supple. CHEST: Symmetrical. Chest has a large breast abscess on the 6 o'clock position. HEART: Regular. ABDOMEN: Soft. EXTREMITIES: No edema. ASSESSMENT AND PLAN: Left breast abscess. The patient is on intravenous antibiotics. Surgical consult. Venu Terrazas MD
[2018-03-17 08:19] VITALS: TEMP 97.7
[2018-03-17 08:26] LABS: BASO % 0.3 % (0.0-2.0); EOS # 0.4 K/uL (0.0-0.7); EOS % 5.3 % (0.0-4.0); HEMOGLOBIN 9.8 g/dL (11.0-16.0); LYMPH # 1.8 K/uL (1.0-4.3); LYMPH % 24.4 % (20.0-40.0); MEAN CORPUSCULAR HEMOGLOBIN 22.4 pg (27.0-31.0); MEAN CORPUSCULAR HGB CONC 31.1 g/dL (33.0-37.0); MEAN PLATELET VOLUME 8.1 fL (7.2-11.7); MONO # 0.5 K/uL (0.0-0.8); MONO % 6.3 % (0.0-10.0); NEUT # 4.7 K/uL (1.8-7.0); NEUT % 63.7 % (50.0-75.0); NRBC % 0.1 % (0.0-2.0); RBC 4.36 Mil/uL (3.80-5.20); RED CELL DISTRIBUTION WIDTH 19.2 % (11.5-14.5); WHITE BLOOD COUNT 7.4 K/uL (4.8-10.8)
--- NOTE | 2018-03-17 08:34 | CP.PCM.PN ---
Subjective - Date & Time of Evaluation Date of Evaluation: 03/17/18 Time of Evaluation: 08:30 - Subjective Subjective: Medicine Progress Note - Dr Toledo's Service Patient seen and examined at bedside. Objective - Vital Signs/Intake and Output Vital Signs (last 24 hours): Temp Pulse Resp BP Pulse Ox 97.7 F 60 20 109/53 L 97 03/17/18 07:19 03/17/18 07:19 03/17/18 07:19 03/17/18 07:19 03/17/18 07:19 Intake and Output: 03/17/18 03/17/18 06:59 18:59 Intake Total 600 Balance 600 - Medications Medications: Current Medications Acetaminophen (Tylenol 325mg Tab) 650 mg PO Q6 PRN PRN Reason: Fever >100.4 F Acetaminophen (Tylenol 325mg Tab) 650 mg PO Q6 PRN PRN Reason: Pain, Mild (1-3) Cefazolin Sodium 1,000 mg/ (Dextrose) 50 mls @ 100 mls/hr IVPB Q8H [facility]; Protocol Last Admin: 03/17/18 02:11 Dose: 100 mls/hr Ondansetron HCl (Zofran Inj) 4 mg IVP Q6H PRN PRN Reason: Nausea/Vomiting Oxycodone/Acetaminophen (Percocet 5/325 Mg Tab) 2 tab PO Q4H PRN PRN Reason: pain Stop: 03/17/18 15:58 Last Admin: 03/14/18 17:29 Dose: 2 tab Tramadol HCl (Ultram) 50 mg PO TID PRN PRN Reason: Pain, moderate (4-7) - Labs Labs: 03/17/18 08:10 03/16/18 08:09 PT 11.9 SECONDS (9.7-12.2) 03/13/18 18:37 INR 1.1 03/13/18 18:37 APTT 33 SECONDS (21-34) 03/13/18 18:37
[2018-03-17 08:48] LABS: ALB/GLOB RATIO 1.1 (1.0-2.1); ALBUMIN 3.7 g/dL (3.5-5.0); ALT/SGPT 23 U/L (9-52); AST/SGOT 22 U/L (14-36); BLOOD UREA NITROGEN 10 mg/dL (7-17); CALCIUM 8.7 mg/dl (8.6-10.4); GFR NON-AFRICAN AMERICAN > 60
[2018-03-17] MEDS ORDERED: Midazolam 2 MG/2 ML VIAL ONE (11:40)
[2018-03-17] MEDS ORDERED: Propofol 10 mg/ml Inj (20 ML) ONE (11:41)
[2018-03-17] MEDS ORDERED: Bacitracin Ointment 30 GM TUBE ONE (11:56)
[2018-03-17] MEDS ORDERED: HYDROmorphone 0.5 mg/0.5 ml ISec IVP PRN (12:17)
--- NOTE | 2018-03-17 14:26 | CP.PCM.DIS ---
Provider - Provider Date of Admission: 03/13/18 18:49 Attending physician: Ana Toledo DO Primary care physician: Dr Terrazas Consults: 03/14/18 10:22 General Surgery Consult Routine Comment: Consulting Provider: Jayden Holley Consulting Physician: Jayden Holley Reason for Consult: breast abscess 03/14/18 15:42 Infectious Disease Consult Routine Comment: Consulting Provider: Emil Sheridan Consulting Physician: Emil Sheridan Reason for Consult: possible MRSA L breast abcess 03/15/18 13:44 Pastoral Care Referral Routine Comment: Physician Instructions: Reason For Exam: sister dying on hospice at home Time Spent in preparation of Discharge (in minutes): 32 Hospital Course - Lab Results Lab Results: Micro Results 03/14/18 17:18 Breast - Left Gram Stain - Final 03/14/18 17:18 Breast - Left Wound Culture - Preliminary Gram Positive Cocci 03/15/18 Unknown Breast - Left Gram Stain - Final 03/15/18 Unknown Breast - Left Wound Culture - Preliminary No growth. 03/14/18 17:18 Breast - Left Gram Stain - Final 03/14/18 17:18 Breast - Left Wound Culture - Preliminary Corynebacterium Species 03/13/18 18:55 Blood Blood Culture - Preliminary NO GROWTH AFTER 3 DAYS 03/13/18 18:33 Blood Blood Culture - Preliminary NO GROWTH AFTER 3 DAYS Most Recent Lab Values WBC 7.4 K/uL (4.8-10.8) 03/17/18 08:10 RBC 4.36 Mil/uL (3.80-5.20) 03/17/18 08:10 Hgb 9.8 g/dL (11.0-16.0) L 03/17/18 08:10 Hct 31.4 % (34.0-47.0) L 03/17/18 08:10 MCV 72.0 fL (81.0-99.0) L 03/17/18 08:10 MCH 22.4 pg (27.0-31.0) L 03/17/18 08:10 MCHC 31.1 g/dL (33.0-37.0) L 03/17/18 08:10 RDW 19.2 % (11.5-14.5) H 03/17/18 08:10 Plt Count 291 K/uL (130-400) 03/17/18 08:10 MPV 8.1 fL (7.2-11.7) 03/17/18 08:10 Neut % (Auto) 63.7 % (50.0-75.0) 03/17/18 08:10 Lymph % (Auto) 24.4 % (20.0-40.0) 03/17/18 08:10 [place] % (Auto) 6.3 % (0.0-10.0) 03/17/18 08:10 Eos % (Auto) 5.3 % (0.0-4.0) H 03/17/18 08:10 Baso % (Auto) 0.3 % (0.0-2.0) 03/17/18 08:10 Neut # (Auto) 4.7 K/uL (1.8-7.0) 03/17/18 08:10 Lymph # (Auto) 1.8 K/uL (1.0-4.3) 03/17/18 08:10 [place] # (Auto) 0.5 K/uL (0.0-0.8) 03/17/18 08:10 Eos # (Auto) 0.4 K/uL (0.0-0.7) 03/17/18 08:10 Baso # (Auto) 0.0 K/uL (0.0-0.2) 03/17/18 08:10 PT 11.9 SECONDS (9.7-12.2) 03/13/18 18:37 INR 1.1 03/13/18 18:37 APTT 33 SECONDS (21-34) 03/13/18 18:37 Sodium 140 mmol/L (132-148) 03/17/18 08:10 Potassium 4.0 mmol/L (3.6-5.2) 03/17/18 08:10 Chloride 106 mmol/L (98-107) 03/17/18 08:10 Carbon Dioxide 27 mmol/L (22-30) 03/17/18 08:10 Anion Gap 12 (10-20) 03/17/18 08:10 BUN 10 mg/dL (7-17) 03/17/18 08:10 Creatinine 0.7 mg/dL (0.7-1.2) 03/17/18 08:10 Est GFR ( Amer) > 60 03/17/18 08:10 Est GFR (Non-Af Amer) > 60 03/17/18 08:10 Random Glucose 120 mg/dL (65-105) H 03/17/18 08:10 Hemoglobin A1c 6.2 % (4.2-6.5) 03/16/18 09:53 Calcium 8.7 mg/dl (8.6-10.4) 03/17/18 08:10 Phosphorus 3.3 mg/dL (2.5-4.5) 03/17/18 08:10 Magnesium 2.2 mg/dL (1.6-2.3) 03/17/18 08:10 Total Bilirubin 0.3 mg/dL (0.2-1.3) 03/17/18 08:10 AST 22 U/L (14-36) 03/17/18 08:10 ALT 23 U/L (9-52) 03/17/18 08:10 Alkaline Phosphatase 76 U/L (38-126) 03/17/18 08:10 Total Protein 7.0 g/dL (6.3-8.3) 03/17/18 08:10 Albumin 3.7 g/dL (3.5-5.0) 03/17/18 08:10 Globulin 3.3 gm/dL (2.2-3.9) 03/17/18 08:10 Albumin/Globulin Ratio 1.1 (1.0-2.1) 03/17/18 08:10 Beta HCG, Quant < 2.39 mIU/ML 03/17/18 08:10 Urine HCG, Qual Negative (NEGATIVE) 03/14/18 06:29 Vancomycin Trough < 5.0 ug/mL (5.0-10.0) L 03/15/18 07:45 - Hospital Course Hospital Course: History of Present Illness: This patient came into the hospital at the urging of Dr. Holley for a pain she felt in her left breast. She states it started 5 days ago, but slowly started to get worse where she could not wear her bra without being in extreme pain. Dr. Holley evaluated her, and told her to come into the ER and have Dr. Terrazas be the main admitting doctor. She admits only to breast pain that is increased with deep inspiration and movement. She has not tried anything to make it feel better. This has never happened before. She denies nipple discharge or other changes to her breast architecture. She denies fevers/chills, OSMAN, CP, SOB, abdominal pain, N/v/d or lower extremity pain/swelling, dysuria/freq. Hospital Course: Patient was admitted to the hospital for left breast abscess. Patient was started on IV Cefazolin and taken to the OR from Incision and drainage of abscess on 03/14 (please refer to operative report). Infectious disease was consulted and following. Blood cultures were negative for growth x 3 days. Wound culture collected on 03/14 grew coryebacterium species. A second wound culture collected on 03/14 grew gram positive cocci. Wound cultures from 03/15 showing no growth. Patient went back to the OR on 03/[address] Holley was debridement of left breast abscess and pulse irrigation (please refer to operative report for more details). She tolerated the procedure well. On day of discharge, patient was doing well. Pain was controlled, tolerating diet, afebrile. Patient was discharged home with instructions to complete Doxycycline 100mg PO BID and to follow up with Dr Holley outpatient. All questions and concerns were addressed. This is just a brief summary of Mrs Duffy hospital stay, please refer to EMR for additional details. Discharge Medication: Doxycycline 100mg PO BID x 10 days Discharge Exam - Head Exam Head Exam: ATRAUMATIC, NORMAL INSPECTION, NORMOCEPHALIC - Eye Exam Eye Exam: EOMI, Normal appearance - ENT Exam ENT Exam: Mucous Membranes Moist - Respiratory Exam Respiratory Exam: Clear to PA & Lateral, NORMAL BREATHING PATTERN, UNREMARKABLE. absent: Rales, Rhonchi, Wheezes - Cardiovascular Exam Cardiovascular Exam: REGULAR RHYTHM, +S1, +S2 Additional comments: Left breast: Dressing clean/dry/intact; +surrounding induration, no erythema or tenderness to palpation - GI/Abdominal Exam GI & Abdominal Exam: Normal Bowel Sounds, Soft. absent: Rebound, Rigid, Tenderness - Extremities Exam Extremities exam: normal inspection, pedal pulses present - Neurological Exam Neurological exam: Alert, Oriented x3 - Psychiatric Exam Psychiatric exam: Normal Affect, Normal Mood - Skin Skin Exam: Dry, Normal Color, Warm Discharge Plan - Discharge Medications Prescriptions: Doxycycline Hyclate 100 mg PO BID #20 capsule - Follow Up Plan Condition: GOOD Disposition: HOME/ ROUTINE Patient education suggested?: Yes Instructions: Breast Abscess Drainage (DC), Cellulitis (DC) Additional Instructions: - Please continue antibiotics as prescribed - F/U with Dr Holley and Dr Terrazas within 1 week - If having fevers, chills, or worsening symptoms, return to nearest ED Referrals: Venu Terrazas MD [Staff Provider] - Emil Sheridan MD [Staff Provider] - Jayden Holley MD [Staff Provider] -
[2018-03-17 15:43] VITALS: BP 136/67; PULSE 65; RESP 20
[2018-03-17 19:08] VITALS: O2SAT 96
--- NOTE | 2018-03-19 08:08 | OP ---
PROCEDURE DATE: 03/17/2018 PREOPERATIVE DIAGNOSIS: Open wound and left breast abscess. POSTOPERATIVE DIAGNOSIS: Open wound and left breast abscess. PROCEDURE PERFORMED: Re-drainage of breast abscess, debridement, control of bleeding, and partial advancement flap closure. SURGEON: Jayden Holley MD ANESTHESIA: General endotracheal. ESTIMATED BLOOD LOSS: 30 mL. POSTOPERATIVE CONDITION: Stable. DESCRIPTION OF PROCEDURE: The patient was taken back to the OR for staged debridement and closure of a large open wound of her left breast, general anesthesia was administered. The left breast was prepped and draped and the previous wound was aggressively debrided and drained of any remaining collections. Bleeding was controlled using the Bovie and lots of blood vessels were repaired. The wound was pulse irrigated with saline and Kantrex solution. Generous tissue flaps were raised. Counterincisions were made and a partial tissue flap closure was performed. The central portion of the wound was packed open with wet saline gauze. The patient tolerated the procedure well and returned to recovery room in stable condition. Jayden Holley MD
== END 2018-03-17 16:30 | disposition home or self-care (01) | DRG 577 ==
LOC: C.ER 17:55 → C.3T 18:49 → C.5S 03-14 16:38
PROVIDERS: ADMIT Internal Medicine Pulmonary Disease; ATTEND Hospitalist
PROC: 0HBU0ZZ Excision of Left Breast, Open Approach (ICD-10-PCS; 2018-03-14)
PROC: 0H9U3ZZ Drainage of Left Breast, Percutaneous Approach (ICD-10-PCS; 2018-03-14)
PROC: 0HBU0ZZ Excision of Left Breast, Open Approach (ICD-10-PCS; 2018-03-15)
PROC: 0HX5XZZ Transfer Chest Skin, External Approach (ICD-10-PCS; principal; 2018-03-15 10:00)
PROC: 0HBU0ZZ Excision of Left Breast, Open Approach (ICD-10-PCS; 2018-03-17)
PROC: 0HX5XZZ Transfer Chest Skin, External Approach (ICD-10-PCS; 2018-03-17)
DX: N61.1 Abscess of the breast and nipple (principal); B95.7 Other staphylococcus as the cause of diseases classified elsewhere; B96.89 Other specified bacterial agents as the cause of diseases classified elsewhere; I10 Essential (primary) hypertension; Z68.42 Body mass index [BMI] 45.0-49.9, adult; E66.01 Morbid (severe) obesity due to excess calories; F17.210 Nicotine dependence, cigarettes, uncomplicated; Z90.710 Acquired absence of both cervix and uterus